=== PATIENT | female | born 1955 | race Caucasian/White ===

== ENCOUNTER 2020-01-19 15:00 | Emergency (ER) | payer OTHER ==
[2020-01-19] MEDS ORDERED: Sodium Chloride 0.9% 10 ML Syringe FLUSH PRN (15:02)
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
--- NOTE | 2020-01-19 16:05 | CR ---
PROCEDURE INFORMATION: Exam: XR Chest, 1 View Exam date and time: 01/19/2020 3:21 PM Age: 64 years old Clinical indication: Chest pain TECHNIQUE: Imaging protocol: XR of the chest Views: 1 view. COMPARISON: No relevant prior studies available. FINDINGS: Lungs: Unremarkable. No consolidation. Pleural space: Unremarkable. No pleural effusion. No pneumothorax. Heart/Mediastinum: Unremarkable. No cardiomegaly. Bones/joints: Unremarkable. IMPRESSION: No acute findings. Thank you for allowing us to participate in the care of your patient. Dictated and Authenticated by: Lobito Miller MD 01/19/2020 4:57 PM Central Time ([place] & [place]) MTDShana
[2020-01-19] MEDS ORDERED: Hydrochlorothiazide 25 MG Tab PO ONE (17:03)
== END 2020-01-19 17:22 | disposition home or self-care (01) ==
LOC: JD.ED 15:00
DX: H53.9 Unspecified visual disturbance (principal); I10 Essential (primary) hypertension; V49.40XA Driver injured in collision with unspecified motor vehicles in traffic accident, initial encounter; Z79.899 Other long term (current) drug therapy
CPT/HCPCS: 36415; 70450; 71045; 80053; 84484; 85025; 93005; 99285; A9270; 93010; 99284

== ENCOUNTER 2020-01-21 18:13 | Emergency (ER) | payer BC, OTHER ==
[2020-01-21] MEDS ORDERED: LORazepam 0.5 MG Tab PO ONE (18:51)
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
[2020-01-21] MEDS ORDERED: Potassium Chloride 20 MEQ Tab.ER PO ONE (19:44)
== END 2020-01-21 20:09 | disposition home or self-care (01) ==
LOC: JD.ED 18:13
DX: E86.0 Dehydration (principal); E87.6 Hypokalemia; F41.1 Generalized anxiety disorder; F43.0 Acute stress reaction; I10 Essential (primary) hypertension; Z79.899 Other long term (current) drug therapy
CPT/HCPCS: 36415; 80053; 83735; 85025; 99284; A9270